=== PATIENT | female | born 2000 | race Caucasian/White ===

== ENCOUNTER 2022-06-13 09:34 | Outpatient (CLI) | payer OTHER ==
[~2022-06-13] VITALS: Ht 172.7 cm; Wt 71.8 kg
--- NOTE | 2022-06-13 09:42 | NUR ---
0942- PATIENT BROUGHT TO UNIT IN WHEELCHAIR. PATIENT ORIENTED TO LABOR ROOM 4 AND ASSISTED INTO A GOWN. EFM AND TOCO PLACED AND TRACING. PATIENT REPORTS BRIGHT RED BLOOD IN THE TOILET THIS MORNING WHEN SHE WENT TO THE RESTROOM AND BLOOD ON THE TOILET TISSUE WHEN WIPING. SHE HAD A PANTY LINER ON WHEN SHE GOT HERE THAT DID NOT HAVE RED BLOOD ON IT. PATINET DENIES RECENT SEXUAL ACTIVITY. PATIENT REPORTS NO LEAKING OF FLUID, GOOD MOVEMENT AND CRAMPY FEELING INTERMITENTLY. WHILE ASSESSING PATIENT SHE REPORTS TIGHTENING FEELING IN HER ABDOMEN. PATIENT REPORTS NOT HAVING MUCH TO DRINK THIS MORNING AND GIVEN A CUP OF WATER. VITAL SIGNS STABLE AT THIS TIME, AFEBRILE.
[2022-06-13 09:50] VITALS: BP 116/78; PULSE 97; TEMP 98.1
[2022-06-13] MEDS ORDERED: PRENATAL (10:00)
[2022-06-13] MEDS ORDERED: PROZAC40 MG PO (10:00)
[2022-06-13] MEDS ORDERED: MUCINEX 60600 MG/TA1 PO (10:01)
[2022-06-13 10:45] VITALS: BP 116/78; PULSE 97; TEMP 98
[2022-06-13 11:45] VITALS: BP 121/82; PULSE 96
[2022-06-13 11:47] LABS: BASO % 0.2 % (0.0-2.0); EOS # 0.1 K/mm3 (0.0-0.7); GRAN % 73.2 % (42.2-75.2); HEMOGLOBIN 10.5 g/dl (12.5-16.0); LYMPH # 1.5 K/mm3 (1.2-3.4); LYMPH % 18.4 % (20.0-51.0); MEAN CELL VOLUME 87 fl (80.0-100.0); MEAN CORPUSCULAR HEMOGLOBIN 29 pg (27-31); MEAN CORPUSCULAR HGB CONC 34 g/dl (33.0-37.0); MEAN PLATELET VOLUME 9.5 fl (7.4-10.4); MONO # 0.6 K/mm3 (0.1-0.6); MONO % 6.8 % (1.7-9.3); PLATELET COUNT 250 K/mm3 (130-400); RED BLOOD COUNT 3.58 M/mm3 (4.10-5.30); REDCELL DISTRIBUTION WIDTH-CV 12.1 % (11.5-14.5)
[2022-06-13 11:48] LABS: HEMATOCRIT 31.2 % (37.0-47.0)
[2022-06-13 11:50] VITALS: PULSE 93; TEMP 98.1
[2022-06-13 11:51] LABS: COLLECTION METHOD CLEAN CATCH
[2022-06-13 11:55] LABS: PH 7.5 (5.0-8.5); URINE APPEARANCE Clear (CLEAR/HAZY); URINE COLOR Yellow (YELLOW)
[2022-06-13 11:56] LABS: URINE BLOOD 2+ (NEGATIVE); URINE GLUCOSE Negative (NEGATIVE); URINE KETONE Negative (NEGATIVE); URINE NITRATE Negative (NEGATIVE); URINE PROTEIN(semi-quant) Negative (NEGATIVE); URINE UROBILINOGEN 0.2 E.U/dL (0.2-1.0)
[2022-06-13 12:01] LABS: ALBUMIN 3.2 gm/dL (3.5-5.0); BILIRUBIN,TOTAL 0.3 mg/dL (0.2-1.2); CALCIUM 8.7 mg/dL (8.4-10.2); CREATININE, serum 0.58 mg/dL (0.57-1.11); POTASSIUM 4.1 mmol/L (3.5-4.5); TOTAL PROTEIN 6.6 gm/dL (6.2-8.1)
[2022-06-13 12:08] LABS: SQUAMOUS EPITHELIAL 0-2 /hpf (0-10); URINE BACTERIA Many /hpf (NONE SEEN); URINE RBC 0-2 /hpf (0-2)
[2022-06-13 12:50] VITALS: BP 117/77; PULSE 87
--- NOTE | 2022-06-13 12:56 | NUR ---
1145 SVE 0/THICK/HIGH. NO BLOOD ON GLOVE AT THIS TIME. PATIENT IS [place] AND FEELS ALOT IN HER BACK. DR JUAN CALLED AND UPDATED. ORDERS GIVEN .
--- NOTE | 2022-06-13 12:58 | NUR ---
1210 IV STARTED IN LEFT WRIST LR 1000 CC BOLUS GIVEN WITH TYLENOL 1000 MG AND VISTERIL [address] ORDERS. PATIENT STATES CRAMPS ARE MOSTLY IN BACK
--- NOTE | 2022-06-13 13:13 | NUR ---
1305 IVF COMPLETE. PATIENT STATES SHE IS FEELING SOME BETTER. STILL FEELS CRAMPS IN BACK BUT NOT MANY OR STRONG. SVE UNCHANGED. 0/THICK HIGH. DR JUAN CALLED AND UPDATEED ON ALL ABOVE INFORMATION AND LABS.
[2022-06-13 13:15] VITALS: BP 100/59; PULSE 90
--- NOTE | 2022-06-13 13:40 | NUR ---
2501 DR JUAN CALLED BACK WITH DISCHARGE ORDERS TO DISMISS TO HOME TO FOLLOW UP NEXT WEEK IN OFFICE. ALL DISCHARGE INSTRUCTIONS GIVEN TO PATIENT AND . VERBAL UNDERSTANDING NOTED. DENIES NEEDS AT THIS TIME, PATIENT STATES SHE FEELS MUCH BETTER AND IS VERY SLEEPY.
[2022-06-14] MEDS ORDERED: TYLENOL 325MG325 MG PO (11:32)
[2022-07-12] MEDS ORDERED: REGLAN 10MG10 MG/TAB PO (11:33)
[2022-07-12] MEDS ORDERED: BENADRYL25 M2 PO (11:35)
[2022-07-12] MEDS ORDERED: LIDODERM 5% PATC1 EA TP (11:36)
[2022-07-25] MEDS ORDERED: TUMS500 MG (10:59)
== END 2022-06-13 13:42 | disposition home or self-care (01) ==
LOC: LDRO 09:34
PROVIDERS: Obstetrics & Gynecology
DX: O46.92 Antepartum hemorrhage, unspecified, second trimester (principal); E75.5 Other lipid storage disorders; Z3A.27 27 weeks gestation of pregnancy
CPT/HCPCS: J7120

== ENCOUNTER 2022-07-05 10:10 | Outpatient (CLI) | payer OTHER ==
[~2022-07-05] VITALS: Ht 172.7 cm; Wt 72.3 kg
[~2022-07-05 10:10] MED LIST: MUCINEX 60600 MG/TA1 PO; PRENATAL; PROZAC40 MG PO; TYLENOL 325MG325 MG PO
[2022-07-05 11:00] VITALS: BP 123/71; PULSE 110
[2022-07-05 11:27] VITALS: BP 117/73; PULSE 96
[2022-07-12] MEDS ORDERED: REGLAN 10MG10 MG/TAB PO (11:33)
[2022-07-12] MEDS ORDERED: BENADRYL25 M2 PO (11:35)
[2022-07-12] MEDS ORDERED: LIDODERM 5% PATC1 EA TP (11:36)
== END 2022-07-05 12:00 | disposition home or self-care (01) ==
LOC: LDRO 10:10
DX: O47.03 False labor before 37 completed weeks of gestation, third trimester (principal); Z3A.30 30 weeks gestation of pregnancy

== ENCOUNTER → 2022-08-07 | Outpatient (CLI) | payer OTHER ==
[~2022-08-07] VITALS: Ht 172.7 cm; Wt 73.6 kg
[~2022-08-07] MED LIST changes: +BENADRYL25 M2 PO; +LIDODERM 5% PATC1 EA TP; +REGLAN 10MG10 MG/TAB PO; +TUMS500 MG
[2022-08-07 13:15] VITALS: BP 129/76; PULSE 116; TEMP 98.4
--- NOTE | 2022-08-07 13:26 | NUR ---
1315 PATIENT HERE FOR COMPLAINTS OF LEG PAIN LAST NIGHT AND BACK CRAMPS THAT ARE GETTING MORE INTENSE. 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 DOES NOT RECALL NAME OF MED. STATES SHE CALLED OFFICE THIS MORNING AND THE OFFICE TOLD HER TO COME TO HOSPITAL. EFM ON FHT 120 BABY VERY ACTIVE. NO CONTRACTIONS ON MONITOR OR PALPATED. SVE 0/50/-4 DENIES OTHER NEEDS AT THIS TIME
[2022-08-07 14:20] VITALS: BP 113/76; PULSE 100
--- NOTE | 2022-08-07 14:21 | NUR ---
0130 DR CHEEMA CALLED AND UPDATED ON ALL INFORMATION ABOUT PATIENT. ALL COMPLAINTS, AND QUESTIONS. NO CAHNGES IN SVE. NO CONTRACTIONS, ORDERS TO DISMISS TO HOME TO FOLLOW UP WITH DR JUAN SCHEDULED.
== END ==
LOC: LDRO 12:57
DX: Z34.93 Encounter for supervision of normal pregnancy, unspecified, third trimester (principal); Z3A.35 35 weeks gestation of pregnancy